=== PATIENT | female | born 1975 | race Caucasian/White ===

== ENCOUNTER 2018-01-29 19:42 | Emergency (ER) | END 2018-01-30 00:16 | disposition home or self-care (01) ==

== ENCOUNTER 2018-08-29 18:39 | Emergency (ER) | payer OTHER ==
[~2018-08-29] VITALS: Ht 160 cm; Wt 75.4 kg
[~2018-08-29 18:39] MED LIST: NORC 5-325 PO
[2018-08-29 18:48] VITALS: Ht 160 cm; Wt 75.4 kg
[2018-08-29] MEDS ORDERED: IBUPROFEN LIQUID (PED) 20 MG/ML CUP PO STA (19:20)
[2018-08-29] MEDS ORDERED: SODIUM CHLORIDE 0.9% 1L BAG IV* STA (19:20)
[2018-08-29] MEDS ORDERED: CEFTRIAXONE 1 GM/50 ML (PMX) 50 ML IVPB STA (19:20)
[2018-08-29] MEDS ORDERED: PANTOPRAZOLE 40 MG INJ IV STA (19:20)
--- NOTE | 2018-08-29 19:25 | ERD ---
ER Documentation Chief Complaint Chief Complaint SORE THROAT, NO COUGHING, FEVER; XTODAY HPI 43-year-old female, previously healthy, presents to the emergency department, complaining of 2 days with worsening of sore throat, fever, general malaise and difficulty swallowing for solids. T-max 103. No medications taken at this time. The patient denies runny nose, no cough, no gastrointestinal symptoms. ROS All systems reviewed and are negative except as per history of present illness. Medications Home Meds Active Scripts Ibuprofen* (Motrin*) 600 Mg Tab, 600 MG PO Q8, #15 TAB Prov:JANELLE MEDRANO MD 08/29/18 Amoxicillin/Potassium Clav (Amox-Clav 875-125 mg Tablet) 875-125 mg Tab, 1 TAB PO BID for 7 Days, #14 TAB Prov:JANELLE MEDRANO MD 08/29/18 Reported Medications Hydrocodone Bit-Acetaminophen* (Dale*) 5-325 Tablet, 1 TAB PO Q4H PRN for PAIN, TAB 02/25/14 Allergies Allergies: Coded Allergies: Fish Containing Products (Verified Allergy, Unknown, 08/29/18) PMhx/Soc Medical and Surgical Hx: pt denies Medical Hx, pt denies Surgical Hx History of Surgery: No Anesthesia Reaction: No Hx Neurological Disorder: No Hx Respiratory Disorders: No Hx Cardiac Disorders: No Hx Psychiatric Problems: No Hx Miscellaneous Medical Probl: No Hx Alcohol Use: No Hx Substance Use: No Hx Tobacco Use: No Smoking Status: Never smoker FmHx Family History: No diabetes, No coronary disease Physical Exam Vitals Vital Signs Date Temp Pulse Resp B/P (MAP) Pulse Ox O2 O2 Flow FiO2 Time Delivery Rate 08/29/18 100.0 112 20 111/56 96 Room Air 21:53 (74) 08/29/18 101.1 19:39 08/29/18 101.1 19:38 08/29/18 102.6 127 19 141/83 99 18:48 (102) Physical Exam Patient is in moderate distress due to fever, vital signs showed fever and tachycardia. EYES: PERRLA, EOMI, injected sclerae EARS: Canals clear, erythematous tympanic membranes THROAT: Erythematous oropharynx with bilateral exudates NECK: Supple, + tender cervical lymphadenopathy. Full ROM without pain or tenderness. HEART: RRR, no rubs, murmurs, clicks or gallops. LUNGS: Bilateral rhonchi to auscultation. ABDOMEN: Soft, non-tender without masses or hepatosplenomegaly. EXTREMITIES: No edema bilaterally. BACK: Full ROM, no deformity, normal back exam NEURO: Cranial nerves grossly intact, no motor or sensory deficit Result Diagram: 08/29/18193508/29/181935 Results 24 hrs Laboratory Tests Test 08/29/18 19:36 08/29/18 19:42 08/29/18 19:49 08/29/18 19:51 White Blood Count 18.4 10^3/ul Red Blood Count 4.67 10^6/ul Hemoglobin 12.0 g/dl Hematocrit 38.3 % Mean Corpuscular 82.0 fl Volume Mean Corpuscular 25.7 pg Hemoglobin Mean Corpuscular 31.3 g/dl Hemoglobin Concent Red Cell 13.7 % Distribution Width Platelet Count 414 10^3/UL Mean Platelet 8.5 fl Volume Immature 0.400 % Granulocytes % Neutrophils % 89.3 % Lymphocytes % 6.1 % Monocytes % 3.9 % Eosinophils % 0.0 % Basophils % 0.3 % Nucleated Red Blood 0.0 /100WBC Cells % Immature 0.080 10^3/ul Granulocytes # Neutrophils # 16.5 10^3/ul Lymphocytes # 1.1 10^3/ul Monocytes # 0.7 10^3/ul Eosinophils # 0.0 10^3/ul Basophils # 0.1 10^3/ul Nucleated Red Blood 0.0 10^3/ul Cells # Sodium Level 138 mmol/L Potassium Level 3.7 mmol/L Chloride Level 102 mmol/L Carbon Dioxide 24 mmol/L Level Anion Gap 12 Blood Urea Nitrogen 12 mg/dl Creatinine 0.86 mg/dl Est Glomerular > 60 mL/min Filtrat Rate mL/min Glucose Level 125 mg/dl Calcium Level 9.7 mg/dl Monoscreen Negative POC Venous Lactate 1.9 mmol/L Bedside Urine pH 8.5 (LAB) Bedside Urine 1+ Protein (LAB) Bedside Urine Negative Glucose (UA) Bedside Urine Negative Ketones (LAB) Bedside Urine Blood 3+ Bedside Urine Negative Nitrite (LAB) Bedside Urine Negative Leukocyte Esterase (L POC Beta HCG, NEGATIVE Qualitative Current Medications Medications Dose Sig/Slava Start Time Status Last (Trade) Ordered Route PRN Stop Time Admin Dose Reason Admin Sodium 2,260 ml BOLUS OVER 2 08/29/18 DC 08/29/18 Chloride HOURS STAT : 19:38 (NS) IV* 08/29/18 19:31 40 mg ONCE STAT 08/29/18 DC 08/29/18 Pantoprazole IV 19:20 19:38 (Protonix 08/29/18 19:31 Iv) Ceftriaxone 50 ml @ ONCE STAT 08/29/18 DC 08/29/18 Sodium 100 mls/hr IVPB 19:20 19:38 08/29/18 19:49 Lorazepam 0.5 mg ONCE ONCE 08/29/18 DC 08/29/18 (Ativan) IV 19:30 19:39 08/29/18 19:31 8 mg ONCE ONCE 08/29/18 DC 08/29/18 Dexamethasone IV 19:30 19:39 (Decadron) 08/29/18 19:31 Ibuprofen 400 mg ONCE STAT 08/29/18 DC 08/29/18 (Motrin PO 19:20 19:39 Liquid 08/29/18 19:31 (Ped)) 320 mg ONCE ONCE 08/29/18 DC 08/29/18 Acetaminophen PO 19:30 19:38 (Tylenol 08/29/18 19:31 Liquid (Ped)) RUN DATE: 08/29/18 [facility] PAGE 1 RUN TIME: [id number] [place] [address] Juan Bailon M.D. Press Cutter Mae Young M.D. Co-[employer] Cutter CHARIS#: [id number] Name: MARY ANN RAMOS Age/Sex: 43/F Attend Dr: JANELLE DE LA PAZ Acct: [id number] MR# : [id number] : 1975 Location: [facility]TE Admit: 08/29/18 Specimen: [id number] Status: Complete Josemanuel: 08/29/18 Rcvd: 08/29/18 Source: THROAT Sp Descrip: Procedure Result Microbiology RAPID STREP ANTIGEN BY EIA Final RAPID STREP ANTIGEN ,EIA POSITIVE (Ref Range Neg) Phoned to JAMIN HARGROVE Procedures/MDM Differential diagnosis include but not limited to: Tonsillar/pharyngeal infection bacterial/viral/fungal, parotitis, allergies, GERD. Less likely peritonsillar abscess, retropharyngeal abscess. No signs of upper respiratory obstruction Physical examination and clinical presentation consistent most likely with acute suppurative tonsillitis. Centor criteria 4/5. During the ED course the patient remained stable, fever resolved with medications given in the ER, no new complaints. Clinical impression discussed with the patient who agrees with management. The patient is stable to be treated outpatient and will be discharged home with a Rx for antibiotic and ibuprofen. Some side effects of prescribed medications (headache, rash, nausea, vomiting, diarrhea, drowsiness, habituation, bleeding, hypertension, interactions with other medications) were reviewed. The patient was instructed to follow up with the primary care provider in the next 48h. If symptoms persist, worsen or new symptoms develop, then patient should return to the ED immediately. Disclaimer: Inadvertent spelling and grammatical errors are likely due to EHR/dictation software use and do not reflect on the overall quality of patient care. Also, please note that the electronic time recorded on this note does not necessarily reflect the actual time of the patient encounter. Departure Diagnosis: Primary Impression: Acute suppurative tonsillitis Additional Impression: Streptococcal tonsillitis Condition: Stable Additional Instructions: Muchas maria luisa por [facility] para lockett servicio. Esperamos que en lockett visita a la patrice de emergencia lockett problema medico haya sido solucionado y que se sienta mucho mejor. Para estar seguros que lockett mejoria sigue en proceso, le pedimos el favor de hacer juan he de seguimiento medico con lockett doctor primario en los proximos 2-4 rasmussen. Lleve con usted estos documentos y las medicinas recetadas. Si laith sintomas empeoran, NO SE ESPERE, por favor regrese a patrice de emergencia INMEDIATAMENTE. En ramakrishna que usted no tenga un mdico de atencin primaria: Llame al mdico o clnica comunitaria de referencia que aparece abajo milla las horas de consultorio para hacer juan he para que le vean. CLINICAS: [facility] [phone] [facility] [phone] [facility]. [facility] [phone] [place] [id number] [phone] [facility] [phone] [facility]. [phone] JANELLE GAVIN MD Aug 29, 2018 19:25
[2018-08-29] MEDS ORDERED: ACETAMINOPHEN 160 MG/5ML CUP PO ONE (19:30)
[2018-08-29] MEDS ORDERED: LORAZEPAM 2 MG INJ IV ONE (19:30)
[2018-08-29] MEDS ORDERED: DEXAMETHASONE 10 MG/ML 1 ML INJ IV ONE (19:30)
[2018-08-29] MEDS ORDERED: AMOX1TAB10 PO (20:08)
[2018-08-29] MEDS ORDERED: IBUP-1542 PO (20:08)
[2018-08-29 21:53] VITALS: BP 111/56; PULSE 112; RESP 20
== END 2018-08-29 21:54 | disposition home or self-care (01) ==
LOC: FTE 18:39
DX: J03.90 Acute tonsillitis, unspecified (principal)
CPT/HCPCS: 80048; 81003; 81025; 83605; 85025; 86308; 87880; 96374; 96375; 99284; C9113; J0696; J1100; J2060; J7030